=== PATIENT | male | born 1945 | race Caucasian/White ===

== ENCOUNTER 2017-07-11 06:03 | Day surgery (SDC) | payer MEDICARE, OTHER ==
[~2017-07-11] VITALS: Ht 185.4 cm; Wt 104.3 kg
[~2017-07-11 06:03] MED LIST: AMIODARONE200 MG PO; LIPITOR20 MG PO; METOPROLOL SUCC25 MG PO; TAMSULOSIN HCL0.4 MG PO; TGT OMEPRAZ20 MG PO
[2017-07-11 08:23] VITALS: BP 155/72
== END 2017-07-11 08:35 | disposition home or self-care (01) ==
LOC: ENDO 06:03 → ORM 07:30 → ENDO 07:30
PROVIDERS: ATTEND Surgery
PROC: 0DJD8ZZ Inspection of Lower Intestinal Tract, Via Natural or Artificial Opening Endoscopic (ICD-10-PCS; principal; 2017-07-11)
DX: K57.31 Diverticulosis of large intestine without perforation or abscess with bleeding (principal); K64.8 Other hemorrhoids; K64.4 Residual hemorrhoidal skin tags; Q43.8 Other specified congenital malformations of intestine; I10 Essential (primary) hypertension

== ENCOUNTER → 2018-06-05 | Outpatient (REF) | payer MEDICARE, OTHER ==
[2018-06-05 11:57] LABS: ANION GAP 14 (6-22 (CALC)); BUN 7 mg/dL (8-23); BUN/CREATININE RATIO 9 (12-20 (CALC)); CARBON DIOXIDE 31 mmol/l (22-30); CHLORIDE 104 mmol/l (95-108); CREATININE 0.7 mg/dL (0.7-1.3); GFR > 60 ML/MIN (>=60 (CALC)); GFR FOR AFR.AMER. > 60 ML/MIN (>=60 (CALC)); POTASSIUM 4.6 mmol/l (3.5-5.1); SODIUM 144 mmol/l (137-146)
== END | disposition home or self-care (01) ==
LOC: LAB 10:51
PROVIDERS: ATTEND Internal Medicine
DX: I10 Essential (primary) hypertension (principal)

== ENCOUNTER 2021-11-21 06:46 | Observation (INO) | payer MEDICARE, OTHER ==
[2021-11-21] VITALS (10 sets, daily range): BP systolic 125–161; BP diastolic 41–84
[~2021-11-21] VITALS: Ht 185.4 cm; Wt 111.0 kg
[~2021-11-21 06:46] MED LIST changes: +LOSARTAN POTASS50 MG PO
[2021-11-21] MEDS ORDERED: ASPIRIN81 MG PO (07:05)
[2021-11-22 04:17] VITALS: BP 142/69
[2021-11-22 05:46] LABS: HEMATOCRIT 36.3 % (39.0-50.0); HEMOGLOBIN 12.5 g/dl (14.0-18.0)
[2021-11-22 14:59] VITALS: BP 113/55
== END 2021-11-22 15:23 | disposition home health service (06) ==
LOC: ORM 06:46 → MS2 12:05
PROVIDERS: Orthopaedic Surgery; ADMIT Internal Medicine; ATTEND Internal Medicine
PROC: 0SRC0JA Replacement of Right Knee Joint with Synthetic Substitute, Uncemented, Open Approach (ICD-10-PCS; principal; 2021-11-21)
PROC: 3E0T3BZ Introduction of Anesthetic Agent into Peripheral Nerves and Plexi, Percutaneous Approach (ICD-10-PCS; 2021-11-21)
DX: M17.11 Unilateral primary osteoarthritis, right knee (principal); I10 Essential (primary) hypertension; E78.00 Pure hypercholesterolemia, unspecified; K21.9 Gastro-esophageal reflux disease without esophagitis; I25.2 Old myocardial infarction; Z87.891 Personal history of nicotine dependence; Z95.1 Presence of aortocoronary bypass graft
CPT/HCPCS: J0131; J1100

== ENCOUNTER 2023-05-15 15:21 | Observation (INO) | payer MEDICARE, OTHER ==
[2023-05-15] VITALS (14 sets, daily range): BP systolic 91–136; BP diastolic 51–79
[~2023-05-15] VITALS: Ht 185.4 cm; Wt 103.8 kg
[~2023-05-15 15:21] MED LIST changes: +ASPIRIN81 MG PO
[2023-05-15 16:00] LABS: BASO% 0.7 % (0-3); EOS% 0.8 % (0-8); IMMATURE GRANULOCYTES 0.1 % (0.0-5.0); MEAN CELL VOLUME 94.7 fL CALC (80.0-100.0); MEAN CORPUSCULAR HGB 33.1 pG CALC (26.0-32.0); MONO% 8.8 % (2-13); NEUT# 5.44 thou/uL (1.82-7.42); NEUT% 71.6 % (42-76); RED BLOOD COUNT 4.86 mill/uL (4.70-6.10); RED CELL DISTRI WIDTH 12.7 % (11.5-15.5)
[2023-05-15 16:08] LABS: HEMOGLOBIN 16.1 g/dl (14.0-18.0)
[2023-05-15 16:14] LABS: D-DIMER 0.44 mg/L (0.19-0.60)
[2023-05-15 16:15] LABS: INTERNATIONAL NORMALIZED RATIO 1.1 RATIO (0.7-1.3); PROTHROMBIN TIME 10.4 SECONDS (9.0-12.5)
[2023-05-15 16:18] LABS: ALBUMIN 4.8 g/dL (3.2-5.0); ALKALINE PHOSPHATASE 66 u/l (38-126); BUN 15 mg/dL (8-23); BUN/CREATININE RATIO 19 (12-20 (CALC)); CARBON DIOXIDE 23 mmol/l (22-30); CHLORIDE 101 mmol/l (95-108); CREATININE 0.8 mg/dL (0.7-1.3); GFR FOR AFR.AMER. > 60 ML/MIN (>=60 (CALC)); GFR OTHER RACES > 60 ML/MIN (>=60 (CALC)); SGOT/AST 49 u/l (19-48); SODIUM 136 mmol/l (137-146); TOTAL PROTEIN 8.1 g/dL (6.3-8.2)
[2023-05-15 16:19] LABS: ANION GAP 15 (6-22 (CALC)); POTASSIUM 3.3 mmol/l (3.5-5.1)
[2023-05-15] MEDS ORDERED: ASPIRIN325 MG PO (16:56)
[2023-05-15] MEDS ORDERED: ZYRTEC10 MG PO (16:57)
[2023-05-15] MEDS ORDERED: MULTI VIT PO (16:57)
[2023-05-15] MEDS ORDERED: OMEPRAZOLE DR40 MG (16:58)
[2023-05-15] MEDS ORDERED: LOSARTAN POTAS100 MG PO (16:59)
[2023-05-15] MEDS ORDERED: HYDROCHLOROT25 MG PO (17:00)
[2023-05-16 00:02] VITALS: BP 95/48
[2023-05-16 00:17] VITALS: BP 95/48
[2023-05-16 04:41] VITALS: BP 117/63
[2023-05-16 05:14] VITALS: BP 117/63
[2023-05-16 07:07] VITALS: BP 108/61
[2023-05-16 10:06] VITALS: BP 113/61
== END 2023-05-16 12:27 | disposition short-term general hospital (02) ==
LOC: ED 15:21 → ED-I 16:09 → ED 16:44 → MS2 16:45
PROVIDERS: Family Medicine; ADMIT Student in an Organized Health Care Education/Training Program; ATTEND Student in an Organized Health Care Education/Training Program
DX: I21.4 Non-ST elevation (NSTEMI) myocardial infarction (principal); I11.0 Hypertensive heart disease with heart failure; I50.9 Heart failure, unspecified; I50.82 Biventricular heart failure; I44.7 Left bundle-branch block, unspecified; I48.0 Paroxysmal atrial fibrillation; E78.00 Pure hypercholesterolemia, unspecified; Z95.1 Presence of aortocoronary bypass graft; K21.9 Gastro-esophageal reflux disease without esophagitis; I25.2 Old myocardial infarction; Z79.899 Other long term (current) drug therapy
CPT/HCPCS: J1650